=== PATIENT | female | born 1955 | race Caucasian/White ===

== ENCOUNTER → 2016-08-10 | Outpatient (CLI) | payer OTHER ==
--- NOTE | 2016-08-10 13:23 | DI ---
BILATERAL SCREENING FULL FIELD DIGITAL MAMMOGRAMS, 08/10/2016 11:11 AM: Clinical History: Screening. Previous Exam: 02/25/2009; 03/21/2010; 03/21/2011. Routine mediolateral oblique and craniocaudal views of each breast are obtained. Breast tissue densit y is rated as having scattered areas of fibroglandular breast tissue. There are no masses. There are no abnormal calcifications. Skin contours, nipples, and lower axillary regions are normal. These mamm ograms were evaluated and reviewed with CAD software. Follow Up: 1 year. BIRADS: 1. Negative. Assessment: Negative.
== END ==
LOC: MAMMO 11:06
PROVIDERS: ATTEND Nurse Practitioner Family
DX: Z12.31 Encounter for screening mammogram for malignant neoplasm of breast (principal)
CPT/HCPCS: G0202